=== PATIENT | male | born 1955 | race Caucasian/White ===

== ENCOUNTER 2016-10-07 12:07 | Emergency (ER) | payer BC ==
[~2016-10-07] VITALS: Ht 177.8 cm; Wt 97.5 kg
[2016-10-07] MEDS ORDERED: PRIL20TA2 PO (12:15)
[2016-10-07] MEDS ORDERED: ROSU20TA PO (12:15)
[2016-10-07] MEDS ORDERED: SERT-155 PO (12:15)
[2016-10-07] MEDS ORDERED: COQ-50CA2 PO (12:15)
[2016-10-07] MEDS ORDERED: LOSA50TA20 PO (12:15)
[2016-10-07] MEDS ORDERED: diphenhydrAMINE INJ 50MG/ML VIAL (J1200) IV STA (13:19)
[2016-10-07] MEDS ORDERED: METOCLOPRAMIDE INJ 10MG/2ML VIAL (J2765) IV ONE (13:30)
[2016-10-07] MEDS ORDERED: NS 1,000 ML IV ONE (13:30)
[2016-10-07] MEDS ORDERED: TUSSICAPS ER 10/8MG CAPSULE PO ONE (13:30)
--- NOTE | 2016-10-07 13:58 | REP ---
CT HEAD WITHOUT CONTRAST: HISTORY: Headache. COMPARISON: None. TECHNIQUE: 4.5 mm contiguous transaxial sections were obtained from the skull base to the cerebral convexities with thin cuts through the posterior fossa with and without the administration of intravenous contrast. FINDINGS: The ventricles and sulci are consistent with the patient's age. There are no extra-axial fluid collections. There is no mass effect on the non-contrast scan and there are no enhancing mass lesions on the post contrast scan. The deep cerebral white matter is consistent with the patient's age. The orbital and petrous structures, cerebellopontine angles and posterior fossa are unremarkable. The sella turcica, cavernous and paracavernous structures are essentially unremarkable. The visualized portions of the paranasal sinuses and mastoid air cells are clear. IMPRESSION: Essentially unremarkable CT examination of the brain. Signed by Quentin Holloway DO 10/07/2016 02:24 P
--- NOTE | 2016-10-07 14:02 | REP ---
CT CERVICAL SPINE WITHOUT CONTRAST: HISTORY: Headache. No history of neck trauma whatsoever. COMPARISON: None. FINDINGS: There is no cervical spine fracture. There is bridging anterior osteophytosis at the C5-6 level with C5-6 and C6-7 disc space narrowing which is moderate and seen in conjunction with posterior osteophytic ridging. There is a near bridging anterior osteophyte at the C4-5 level. There is the appearance of old gilda shovelers fracture involving C6 and C7 spinous processes. This is incidental at this time since they are old. Vertebral body height and alignment is within normal limits. Degenerative facet joint changes are present along with degenerative uncovertebral joint changes C5 through C7 and bilaterally. IMPRESSION: No acute disease. Chronic changes as described above. It should be stated that CT cannot rule out a disc herniation. There are some air densities seen posterior to the C7 vertebral body of uncertain etiology. Infectious etiology could not be ruled out and needs to be correlated clinically. Certainly, degenerative disc disease could cause this finding. Signed by Quentin Holloway DO 10/07/2016 02:25 P
[2016-10-07 14:09] LABS: BASO % 0.4 % (0.0-1.0); EOS # 0.1 K/mm3 (0.0-0.50); EOS % 1.8 % (0.0-3.0); LARGE UNSTAINED CELL # 0.1 K/mm3 (0.0-0.4); LARGE UNSTAINED CELL % 1.8 % (0.0-4.0); LYMPH # 0.7 K/mm3 (1.5-4.5); LYMPH % 9.2 % (24.0-44.0); MEAN CORPUSCULAR HEMOGLOBIN 32.5 pg (27.0-33.0); MEAN CORPUSCULAR HGB CONC 34.7 g/dl (32.0-36.5); MEAN CORPUSCULAR VOLUME 93.8 fl (80.0-96.0); MONO # 0.5 K/mm3 (0.0-0.8); MONO % 7.6 % (0.0-5.0); NEUTROPHILS # 5.3 K/mm3 (1.8-7.7); NEUTROPHILS % 79.1 % (36.0-66.0); PLATELET COUNT, AUTOMATED 222 k/mm3 (150-450); RED CELL DISTRIBUTION WIDTH 12.6 % (11.5-14.5); WHITE BLOOD COUNT 6.7 K/mm3 (4.0-10.0)
[2016-10-07 14:26] LABS: ANION GAP 7 MEQ/L (8-16); BLOOD UREA NITROGEN 15 MG/DL (7-18); CALCIUM LEVEL 8.4 MG/DL (8.5-10.1); CARBON DIOXIDE LEVEL 28 MEQ/L (21-32); CHLORIDE LEVEL 105 MEQ/L (98-107); GLOMERULAR FILTRATION RATE > 60.0 (>56); GLUCOSE, FASTING 114 MG/DL (70-105); POTASSIUM SERUM 4.4 MEQ/L (3.5-5.1); SODIUM LEVEL 140 MEQ/L (136-145)
--- NOTE | 2016-10-07 14:41 | REP ---
CHEST, TWO VIEWS: HISTORY: Cough and dyspnea. COMPARISON: None. There is cardiomegaly. There is a patchy opacity in the left retrocardiac region. The pleural angles are sharp. The right lung is clear. The osseous structures are within normal limits. IMPRESSION: Cardiomegaly and left lower lobe pneumonia. Signed by Quentin Holloway DO 10/07/2016 02:49 P
[2016-10-07] MEDS ORDERED: LevoFLOXacin IV 750 MG in APPROPRIATE DILUENT 1 EA IV ONE (15:00)
[2016-10-07] MEDS ORDERED: KETOROLAC 30 MG/ML VIAL (J1885) IV ONE (15:00)
[2016-10-07 16:27] VITALS: BP 124/70
[2016-10-07] MEDS ORDERED: LEVO750T33 PO (17:04)
[2016-10-07] MEDS ORDERED: HYDRLIQ11 PO (17:06)
--- NOTE | 2016-10-09 08:43 | ED PDOC ---
Post-Departure Follow-Up radiology report faxed to Velia Richter MD October 09, 2016 08:43
== END 2016-10-07 17:27 | disposition home or self-care (01) ==
LOC: M ED 13:12
DX: J18.9 Pneumonia, unspecified organism (principal); R51 Headache; I10 Essential (primary) hypertension; E78.00 Pure hypercholesterolemia, unspecified; M54.2 Cervicalgia; G89.29 Other chronic pain; Z87.891 Personal history of nicotine dependence
CPT/HCPCS: 70450; 71020; 72125; 80048; 85025; 96374; 96375; 99282; J1200; J1885; J1956; J2765

== ENCOUNTER → 2017-12-21 | Outpatient (REF) | payer BC ==
[2017-12-21 13:31] LABS: GAMMA GLUTAMYLTRANSPEPTIDASE 23 U/L (15-85)
== END ==
LOC: M LAB REF 13:09
DX: K21.9 Gastro-esophageal reflux disease without esophagitis (principal)

== ENCOUNTER → 2018-12-25 | Outpatient (REF) | payer BC ==
[~2018-12-25] MED LIST: COQ-50CA2 PO; HYDR5LIQ2 PO; LEVO750T13 PO; LOSA50TA88 PO; PRIL20TA2 PO; ROSU20TA5 PO; SERT-155 PO
== END ==
LOC: M LAB REF 12:49
PROVIDERS: ATTEND Family Medicine
DX: Z01.89 Encounter for other specified special examinations (principal)

== ENCOUNTER → 2020-12-08 | Outpatient (CLI) | payer BC ==
[~2020-12-08] MED LIST changes: +GOOD81CH2 PO; -SERT-155 PO; +SERT50TA29 PO
== END ==
LOC: M LABSMTC 10:02
PROVIDERS: ATTEND Anesthesiology
DX: Z01.818 Encounter for other preprocedural examination (principal); Z11.52 Encounter for screening for COVID-19

== ENCOUNTER 2020-12-13 08:57 | Day surgery (SDC) | payer BC ==
[~2020-12-13] VITALS: Ht 177.8 cm; Wt 96.2 kg
[~2020-12-13 08:57] MED LIST changes: +NS 1,000 ML IV ONE
[2020-12-13] MEDS ORDERED: fentaNYL 100 MCG/2 ML INJECTION (J3010) As Ordered ONE (09:45)
[2020-12-13] MEDS ORDERED: propofoL 200 MG/20 ML VIAL As Ordered ONE (09:45)
[2020-12-13] MEDS ORDERED: LIDOCAINE 2% 100MG/5ML SDV (FOR ANES.) As Ordered ONE (09:45)
--- NOTE | 2020-12-13 10:11 | ROOR ---
Patient Name: Ricardo Oliveira Procedure Date: 12/13/2020 9:55 AM Date of : 1955 Age: 64 Room: [facility] Gender: Male Note Status: Finalized Procedure: Upper Endoscopy + Biopsies Indications: Heartburn, Exclusion of Rodriguez's esophagus Providers: Rufino Norris MD Referring MD: Luis Daniel Wharton MD Requesting Provider: Medicines: Monitored Anesthesia Care Complications: No immediate complications. Procedure: Pre-Anesthesia Assessment: - The heart rate, respiratory rate, oxygen saturations, blood pressure, adequacy of pulmonary ventilation, and response to care were monitored throughout the procedure. The Endoscope was introduced through the mouth, and advanced to the second part of duodenum. The upper GI endoscopy was accomplished without difficulty. The patient tolerated the procedure well. Findings: The Z-line was variable and was found 40 cm from the incisors. Several biopsies were obtained with cold forceps for evaluation to rule out Rodriguez's Esophagus randomly at the gastroesophageal junction. A small hiatal hernia was present. Localized moderate inflammation characterized by congestion (edema), erosions, erythema, linear erosions and shallow ulcerations was found in the gastric antrum. Biopsies were taken with a cold forceps for Helicobacter pylori testing. The exam of the duodenum was otherwise normal. Impression: - Z-line variable, 40 cm from the incisors. - Small hiatal hernia. - Mucosal changes suspicious for gastritis. Biopsied. - Several biopsies were obtained at the gastroesophageal junction. - The examination was otherwise normal. Recommendation: - Patient has a contact number available for emergencies. The signs and symptoms of potential delayed complications were discussed with the patient. Return to normal activities tomorrow. Written discharge instructions were provided to the patient. - High fiber diet. - Discharge patient to home. - Follow an antireflux regimen. - Continue present medications. - Await pathology results. - Telephone GI clinic for pathology results in 1 week. - The findings and recommendations were discussed with the patient's family. Procedure Code(s): --- Professional --- 25620, Esophagogastroduodenoscopy, flexible, transoral; with biopsy, single or multiple Diagnosis Code(s): --- Professional --- K22.8, Other specified diseases of esophagus K44.9, Diaphragmatic hernia without obstruction or gangrene K31.89, Other diseases of stomach and duodenum R12, Heartburn CPT copyright 2019 [employer]. All rights reserved. The codes documented in this report are preliminary and upon accelerator technician review may be revised to meet current compliance requirements. Rufino Norris MD Rufino Norris MD 12/13/2020 10:10:50 AM Electronically signed by Rufino Norris MD Number of Addenda: 0 Note Initiated On: 12/13/2020 9:55 AM Estimated Blood Loss: Estimated blood loss: none.
--- NOTE | 2020-12-13 10:24 | ROOR ---
Patient Name: Ricardo Oliveira Procedure Date: 12/13/2020 9:55 AM Date of : 1955 Age: 64 Room: [facility] Gender: Male Note Status: Finalized Procedure: Total Colonoscopy to Cecum + ileoscopy Indications: Screening for colorectal malignant neoplasm Providers: Rufino Norris MD Referring MD: Luis Daniel Wharton MD Requesting Provider: Medicines: Monitored Anesthesia Care Complications: No immediate complications. Procedure: Pre-Anesthesia Assessment: - The heart rate, respiratory rate, oxygen saturations, blood pressure, adequacy of pulmonary ventilation, and response to care were monitored throughout the procedure. The Colonoscope was introduced through the anus and advanced to the terminal ileum, with identification of the appendiceal orifice and IC valve. The colonoscopy was performed without difficulty. The patient tolerated the procedure well. The quality of the bowel preparation was excellent. Findings: The perianal and digital rectal examinations were normal. Non-bleeding internal hemorrhoids were found during retroflexion. The hemorrhoids were small and Grade I (internal hemorrhoids that do not prolapse). Scattered small-mouthed diverticula were found in the recto-sigmoid colon, sigmoid colon and descending colon. The terminal ileum appeared normal. The exam was otherwise without abnormality on direct and retroflexion views. Impression: - Non-bleeding internal hemorrhoids. - Diverticulosis in the recto-sigmoid colon, in the sigmoid colon and in the descending colon. - The examined portion of the ileum was normal. - The examination was otherwise normal on direct and retroflexion views. - No specimens collected. - The exam was otherwise normal to the cecum. Recommendation: - Patient has a contact number available for emergencies. The signs and symptoms of potential delayed complications were discussed with the patient. Return to normal activities tomorrow. Written discharge instructions were provided to the patient. - High fiber diet. - Discharge patient to home. - Continue present medications. - Repeat colonoscopy in 10 years for screening purposes. - Return to referring physician. - The findings and recommendations were discussed with the patient's family. Procedure Code(s): --- Professional --- 45882, Colonoscopy, flexible; diagnostic, including collection of specimen(s) by brushing or washing, when performed (separate procedure) Diagnosis Code(s): --- Professional --- Z12.11, Encounter for screening for malignant neoplasm of colon K64.0, First degree hemorrhoids K57.30, Diverticulosis of large intestine without perforation or abscess without bleeding CPT copyright 2019 [employer]. All rights reserved. The codes documented in this report are preliminary and upon camera assembler review may be revised to meet current compliance requirements. Rufino Norris MD Rufino Norris MD 12/13/2020 10:23:52 AM Electronically signed by Rufino Norris MD Number of Addenda: 0 Note Initiated On: 12/13/2020 9:55 AM Estimated Blood Loss: Estimated blood loss: none.
[2020-12-13 10:50] VITALS: BP 119/64
== END 2020-12-13 10:52 | disposition home or self-care (01) ==
LOC: M OPP 08:57
PROVIDERS: ATTEND Internal Medicine Gastroenterology
DX: Z12.11 Encounter for screening for malignant neoplasm of colon (principal); K44.9 Diaphragmatic hernia without obstruction or gangrene; K57.30 Diverticulosis of large intestine without perforation or abscess without bleeding; K64.0 First degree hemorrhoids; K31.89 Other diseases of stomach and duodenum; K21.9 Gastro-esophageal reflux disease without esophagitis; K22.8 Other specified diseases of esophagus; R12 Heartburn; Z79.82 Long term (current) use of aspirin; Z79.899 Other long term (current) drug therapy
CPT/HCPCS: 43239; 45378; 88305; J3010

== ENCOUNTER → 2021-06-20 | Outpatient (CLI) | payer BC ==
[~2021-06-20] MED LIST changes: +LOSA50TA28 PO; -LOSA50TA88 PO; -NS 1,000 ML IV ONE
== END ==
LOC: M WUC 11:31
PROVIDERS: ATTEND Internal Medicine Cardiovascular Disease
DX: M54.2 Cervicalgia (principal)

== ENCOUNTER → 2021-06-29 | Outpatient (CLI) | payer BC ==
[~2021-06-29] MED LIST changes: +ATOR1TAB21 PO; +OMEP40CA5 PO; +ZOLO100T PO
== END ==
LOC: M LABSMTC 11:07
PROVIDERS: ATTEND Anesthesiology
DX: Z01.818 Encounter for other preprocedural examination (principal); Z11.52 Encounter for screening for COVID-19

== ENCOUNTER 2021-06-30 06:13 | Day surgery (SDC) | payer BC ==
[~2021-06-30] VITALS: Ht 177.8 cm; Wt 98.0 kg
[~2021-06-30 06:13] MED LIST changes: +LIDOCAINE 1% MDV 20ML VIAL SQ PRN; +LR 1,000 ML IV ONE
[2021-06-30] MEDS ORDERED: LIDOCAINE VISCOUS 2% SOLN 15ML UDC As Ordered ONE (07:09)
[2021-06-30] MEDS ORDERED: CETACAINE SPRAY 5GM As Ordered ONE (07:09)
[2021-06-30] MEDS ORDERED: propofoL 200 MG/20 ML VIAL As Ordered ONE (07:10)
[2021-06-30] MEDS ORDERED: LIDOCAINE 2% 100MG/5ML SDV (FOR ANES.) As Ordered ONE (07:10)
[2021-06-30] MEDS ORDERED: fentaNYL 100 MCG/2 ML INJECTION As Ordered ONE (07:10)
[2021-06-30] MEDS ORDERED: MIDAZOLAM INJ 2MG/2ML VIAL (J2250 PER 1MG) As Ordered ONE (07:11)
[2021-06-30] MEDS ORDERED: ONDANSETRON 4MG/2ML VIAL As Ordered ONE (07:46)
[2021-06-30 08:17] VITALS: BP 126/67
== END 2021-06-30 08:28 | disposition home or self-care (01) ==
LOC: M SDC 06:13
PROVIDERS: ATTEND Internal Medicine Cardiovascular Disease
DX: I25.3 Aneurysm of heart (principal); I10 Essential (primary) hypertension; E78.5 Hyperlipidemia, unspecified; K21.9 Gastro-esophageal reflux disease without esophagitis; Z87.81 Personal history of (healed) traumatic fracture; Z87.828 Personal history of other (healed) physical injury and trauma; F41.9 Anxiety disorder, unspecified; R06.83 Snoring; Z79.899 Other long term (current) drug therapy; Z79.82 Long term (current) use of aspirin
CPT/HCPCS: 93312; 93320; 93325; J2250; J2405; J3010

== ENCOUNTER → 2022-05-01 | Outpatient (CLI) | payer BC ==
[~2022-05-01] MED LIST changes: -GOOD81CH2 PO; +LEVO1TAB40 PO; -LEVO750T13 PO; -LIDOCAINE 1% MDV 20ML VIAL SQ PRN; -LR 1,000 ML IV ONE; +RA A81CH3 PO
== END ==
LOC: M RAD 07:35
PROVIDERS: ATTEND Orthopaedic Surgery
DX: M25.562 Pain in left knee (principal)